=== PATIENT | male | born 2000 | race Caucasian/White ===

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

== ENCOUNTER 2023-10-07 12:29 | Emergency (ER) | payer OTHER, SELFPAY ==
[2023-10-07 13:06] VITALS: BP 133/82; PULSE 70; RESP 16; TEMP 36.6; O2SAT 100
--- NOTE | 2023-10-07 13:27 | ED.SKABFB ---
HPI - Skin/Abscess/Foreign Bdy General Chief complaint: Skin/Abscess/Foreign Body Stated complaint: Face Irritation/Rash Time Seen by Provider: 10/07/23 13:15 Source: patient Mode of arrival: ambulatory Limitations: no limitations History of Present Illness HPI narrative: Owen is a 23-year-old male patient presenting to the clinic today with complaints of a rash his face. He reports that this rash developed over 1-2 days. Rash/pustule is to the left upper cheek near the eye. Has redness and swelling around the eye. Denies any known fever or chills. Area is not draining Related Data Allergies Allergy/AdvReac Type Severity Reaction Status Date / Time No Known Allergies Allergy Unverified 12/06/22 13:52 Review of Systems Review of Systems: Pertinent positives per HPI. Patient denies any fever, chills, headache, visual changes, dizziness, cough, runny nose, sore throat, shortness of breath, chest pain, palpitations, nausea, vomiting, diarrhea, constipation, abdominal pain, or any urinary issues. [facility] Family History Family History Father No problems noted. Mother No problems noted. Social History Social History Smoking status: Never smoker Alcohol intake: never Substance use: never Lack of Transportation: No Lack of Food: Never True Current Housing: I Have Housing Concerned About Future Housing: No Difficulty Paying Gas/Electric Bills: No Difficulty Paying for Meds: No Currently Unemployed: No Education: Associate Degree Difficulty w/ Childcare or Family Care: No Living arrangements: with friend(s) Occupation/Education: occupation Gender identity (if verbalized by the patient): Male Comments At the time of my signature, I reviewed and agree with the nursing past medical, surgical, social, and family history. There is no relevant family history pertinent to the patient complaint. Exam Narrative: General: Well-developed, well nourished, in no apparent distress Head: Normocephalic, atraumatic. Cardio: Regular rate and rhythm, s1 and s2 normal, no murmur appreciated. Resp: Clear to auscultation bilaterally, no rhonchi, rales, wheezing or rubs. Integumentary: [place], warm, and dry, 1 cm x 1 cm firm indurated area without fluctuance. Yellow scabbing covering the area, tender to palpation with erythema and mild swelling noted around the left eye Course Course Emergency Course: Portions of this record may have been created with voice recognition software. Level of Care: Express Care Visit Vital Signs Vital signs: Vital Signs Temperature 36.6 C 10/07/23 13:06 Pulse Rate 70 10/07/23 13:06 Respiratory Rate 16 10/07/23 13:06 Blood Pressure 133/82 10/07/23 13:06 Pulse Oximetry 100 10/07/23 13:06 Temperature 36.6 C 10/07/23 13:06 Pulse Rate 70 10/07/23 13:06 Respiratory Rate 16 10/07/23 13:06 Blood Pressure 133/82 10/07/23 13:06 Pulse Oximetry 100 10/07/23 13:06 Vital signs reviewed MDM - Skin/Abscess/Foreign Bdy MDM Narrative Medical decision making narrative: At the time of visit patient is resting comfortably on the exam table. Patient appears to be nontoxic. I suspect patient has a skin infection to the left upper cheek with possible early periorbital cellulitis. Prescription for Bactrim and cephalexin was sent to the pharmacy. Rocephin 1 g IM given in the clinic today. Also send in prescription for some mupirocin cream to apply to the area twice daily for 7 days. Supportive measures were discussed with the patient and they voiced understanding discharge instructions and agrees to treatment plan. Return precautions reviewed Differential Diagnosis Differential diagnosis: Likely abscess of skin or subcutaneous tissue, cellulitis, insect bites and impetigo Discharge Plan Discharge Clinical Impressi
[2023-10-07] MEDS: cefTRIAXone 1 GM, LIDOCAINE HCL 1% LOCAL INJ 2.1 ML IM (13:42)
== END 2023-10-07 14:07 | disposition home or self-care (01) ==
PROVIDERS: Emergency Provider Nurse Practitioner Family; PCP Pediatrics
DX: L08.89 Other specified local infections of the skin and subcutaneous tissue (principal); B96.89 Other specified bacterial agents as the cause of diseases classified elsewhere
CPT/HCPCS: 96372; 99213; G0463; J0696